=== PATIENT | female | born 1995 | race African-American/Black ===

== ENCOUNTER 2020-05-12 19:18 | Emergency (ER) | payer OTHER, SELFPAY ==
[2020-05-12 19:59] LABS: Bilirubin Neg (Negative); Blood, Urine 250 (Negative); Clarity Cloudy (Clear); Glucose, Urine (Dipstick) Normal (Negative); Ketone, Urine 15 mg/dL (Negative); Leukocyte 100 (Negative); Nitrite Negative (Negative); Protein, Urine (Dipstick) 100 mg/dl (Neg-Trace); Specific Gravity, Urine 1.025 (1.002-1.036); Urobilinogen Normal mg/dL (Less than 2)
[2020-05-12 20:52] LABS: Bacteria/HPF Rare-Few HPF (None Seen); RBC/HPF Greater than 50 HPF (0-3)
[2020-05-12 21:16] LABS: Pregnancy Test - Urine (BHCG) Negative (Negative); Pregu Control Background? CLEAR/WHITE (CLR/WHITE); Pregu Control Bar Appear? YES (CONTROL BAR); Specific Gravity 1.025 (1.002-1.036)
== END 2020-05-12 21:39 | disposition home or self-care (01) ==
LOC: CSHERS 19:18
DX: N39.0 Urinary tract infection, site not specified (principal)
CPT/HCPCS: 81003; 81015; 81025; 99283

== ENCOUNTER 2021-09-19 09:38 | Emergency (ER) | payer SELFPAY | END 2021-09-19 11:20 | disposition home or self-care (01) | LOC: CSHERS 09:38 | DX: B34.9 Viral infection, unspecified (principal) | CPT/HCPCS: 87081; 87430; 99283 ==

== ENCOUNTER 2021-10-10 12:26 | Emergency (ER) | payer SELFPAY ==
[2021-10-10 13:39] LABS: Bilirubin Neg (Negative); Blood, Urine 25 (Negative); Clarity Cloudy (Clear); Glucose, Urine (Dipstick) Normal (Negative); Ketone, Urine 5 mg/dL (Negative); Leukocyte 500 (Negative); Nitrite Positive (Negative); Protein, Urine (Dipstick) 30 mg/dl (Neg-Trace)
[2021-10-10 13:57] LABS: SARS-CoV-2 NAA Rapid Test Not Detected (NotDetected)
[2021-10-10 14:06] LABS: Bacteria/HPF 3+ HPF (None Seen); WBC/HPF Greater Than 50 HPF (0-3)
[2021-10-10 14:07] LABS: Mucous/LPF 3+ LPF (<2+); Squamous Epithelial 21-50 HPF (0-3)
== END 2021-10-10 15:15 | disposition home or self-care (01) ==
LOC: CSHERS 12:26
DX: N39.0 Urinary tract infection, site not specified (principal); Z20.822 Contact with and (suspected) exposure to COVID-19
CPT/HCPCS: 81003; 81015; 99283; U0002

== ENCOUNTER 2022-02-17 06:56 | Emergency (ER) | payer SELFPAY | END 2022-02-17 07:17 | disposition home or self-care (01) | LOC: CSHERS 06:56 | DX: J02.9 Acute pharyngitis, unspecified (principal) | CPT/HCPCS: 99282 ==

== ENCOUNTER 2023-04-19 20:14 | Emergency (ER) | payer OTHER | END 2023-04-19 21:05 | disposition home or self-care (01) | LOC: CSHERS 20:14 | DX: O87.2 Hemorrhoids in the puerperium (principal) | CPT/HCPCS: 99283 ==

== ENCOUNTER 2023-04-30 13:26 | Emergency (ER) | payer OTHER ==
[2023-04-30] MEDS ORDERED: Acetaminophen 500 MG TAB ONE (13:38)
[2023-04-30] MEDS ORDERED: Ondansetron PF 4 MG/2 ML Vial ONE (14:41)
[2023-04-30 15:01] LABS: Anion Gap 14 mmol/L (10-20); BUN (Urea Nitrogen) 5 mg/dL (7.0-18.7); Calc. Creatinine Clearance 0 mL/min (70-130); Calcium 8.8 mg/dL (7.8-10.44); Carbon Dioxide 22 mmol/L (22-29); Chloride 106 mmol/L (98-107); Estimated GFR 101; Glucose 94 mg/dL (70-105); Potassium 3.5 mmol/L (3.5-5.1); Sodium 138 mmol/L (136-145)
[2023-04-30 15:14] LABS: #Eosinphils 0.1 10x3/uL (0.0-0.5); #Monocytes 0.4 10x3/uL (0.0-1.1); #Neutrophils 3.6 10x3/uL (1.5-8.4); %Basophils 0.6 % (0.0-2.0); %Eosinophils 1.9 % (0.0-6.0); %Lymphocytes 11.6 % (18.0-47.0); %Monocytes 9.3 % (0.0-10.0); %Neutrophils 76.4 % (40.0-75.0); Hematocrit 33.7 % (34.9-44.5); Hemoglobin 10.5 g/dL (12.0-15.5); Mean Corpuscular HGB CONC 31.2 g/dL (32.0-36.0); Mean Corpuscular Hemoglobin 23.4 pg (27.0-33.0); Mean Corpuscular Volume 75.2 fl (81.6-98.3); Mean Platelet Volume 9.8 fl (7.4-10.4); Platelet Count 400 10x3/uL (150-450); Red Blood Cell (RBC) Count 4.48 10x6/uL (3.90-5.03); White Blood Cell (WBC) Count 4.7 10x3/uL (3.5-10.5)
[2023-04-30 15:49] LABS: Influenza A by NAA Not Detected (NotDetected); Influenza B by NAA DETECTED (NotDetected); SARS-CoV-2 NAA Rapid Test Not Detected (NotDetected)
== END 2023-04-30 15:47 | disposition home or self-care (01) ==
LOC: CSHERS 13:26
DX: J06.9 Acute upper respiratory infection, unspecified (principal)
CPT/HCPCS: 80048; 85025; 99283; J2405

== ENCOUNTER 2023-06-29 10:17 | Emergency (ER) | payer OTHER | END 2023-06-29 11:20 | disposition home or self-care (01) | LOC: CSHERS 10:17 | DX: S01.511A Laceration without foreign body of lip, initial encounter (principal); Z55.6 Problems related to health literacy; X58.XXXA Exposure to other specified factors, initial encounter | CPT/HCPCS: 12011; 99282 ==

== ENCOUNTER 2024-12-06 11:03 | Emergency (ER) | payer OTHER, SELFPAY ==
[2024-12-06] MEDS ORDERED: Ibuprofen 800 MG TAB ONE (11:19)
[2024-12-06] MEDS ORDERED: Dexamethasone 4 MG TAB ONE (11:20)
== END 2024-12-06 12:01 | disposition home or self-care (01) ==
LOC: CSHERS 11:03
DX: J02.9 Acute pharyngitis, unspecified (principal); Z55.6 Problems related to health literacy
CPT/HCPCS: 87081; 87428; 87430; 99283; J8540

== ENCOUNTER 2025-01-06 21:08 | Emergency (ER) | payer SELFPAY ==
[2025-01-06 21:52] LABS: Glucose, Urine (Dipstick) Normal (Negative); Leukocyte 100 (Negative); Protein, Urine (Dipstick) 30 mg/dl (Neg-Trace); Specific Gravity, Urine 1.025 (1.005-1.030)
[2025-01-06 21:57] LABS: Pregnancy Test - Urine (BHCG) Negative (Negative); Pregu Control Background? CLEAR/WHITE (CLR/WHITE); Pregu Control Bar Appear? YES (CONTROL BAR)
[2025-01-06 22:29] LABS: CAUTI Indications for Culture Fever or rigors; RBC/HPF 0-3 HPF (0-3)
[2025-01-06 22:30] LABS: ALT (SGPT) 10 U/L (Less than 34); AST (SGOT) 20 U/L (11-34); Albumin 3.9 g/dL (3.1-4.5); Alkaline Phosphatase 80 U/L (40-110); Anion Gap 13 mmol/L (10-20); BUN (Urea Nitrogen) 8 mg/dL (7.0-18.7); Bilirubin, Total 0.4 mg/dL (0.3-1.2); Calc. Creatinine Clearance 0 mL/min (70-130); Calcium 8.4 mg/dL (7.8-10.44); Carbon Dioxide 25 mmol/L (22-29); Chloride 105 mmol/L (98-107); Globulin 3.7 g/dL (2.4-3.5); Glucose 93 mg/dL (70-105); Lipase 14 U/L (8-78); Potassium 3.3 mmol/L (3.5-5.1); Sodium 140 mmol/L (136-145)
[2025-01-06 22:30] LABS: Bacteria/HPF 4+ HPF (None Seen); Urine Culture Reflex No No
[2025-01-06 22:43] LABS: #Basophils 0.03 10x3/uL (0.0-0.2); #Eosinophils 0.10 10x3/uL (0.0-0.5); #Monocytes 0.59 10x3/uL (0.0-1.1); #Neutrophils 2.03 10x3/uL (1.5-8.4); %Basophils 0.7 % (0.0-2.0); %Eosinophils 2.2 % (0.0-6.0); %Lymphocytes 40.1 % (18.0-47.0); %Monocytes 12.8 % (0.0-10.0); %Neutrophils 44.0 % (40.0-75.0); Hematocrit 29.1 % (34.9-44.5); Hemoglobin 9.0 g/dL (12.0-15.5); Mean Corpuscular Hemoglobin 21.1 pg (27.0-33.0); Mean Corpuscular Volume 68.1 fL (81.6-98.3); Platelet Count 414 10x3/uL (150-450); Red Blood Cell (RBC) Count 4.27 10x6/uL (3.90-5.03); White Blood Cell (WBC) Count 4.61 10x3/uL (3.5-10.5)
[2025-01-06 22:53] LABS: Anisocytosis SLIGHT = 6-15 cells (100X) (0-5/hpf); Microcytosis SLIGHT = 6-15 cells (100X) (0-5/hpf); Ovalocytes SLIGHT = 2-5 cells (100X) (0-1/hpf)
[2025-01-06 22:57] LABS: Platelet Adequacy Comment Appears Increased
== END 2025-01-06 23:12 | disposition left against medical advice (07) ==
LOC: CSHERS 21:08
DX: Z53.21 Procedure and treatment not carried out due to patient leaving prior to being seen by health care provider (principal)
CPT/HCPCS: 80053; 81001; 81025; 83690; 85025

== ENCOUNTER 2025-02-23 03:12 | Emergency (ER) | payer SELFPAY | END 2025-02-23 03:55 | disposition home or self-care (01) | LOC: CSHERS 03:12 | DX: S06.0X0A Concussion without loss of consciousness, initial encounter (principal); W22.8XXA Striking against or struck by other objects, initial encounter; Y99.0 Civilian activity done for income or pay | CPT/HCPCS: 99283 ==